=== PATIENT | female | born 1940 | race Caucasian/White ===

== ENCOUNTER 2025-03-07 14:55 | Emergency (ER) | payer OTHER ==
[2025-03-07 15:17] VITALS: BMI 38.7
[2025-03-07 16:04] LABS: MCHC 31.4 g/dl (32.2-35.5); MEAN CELL VOLUME 91.0 fl (79.4-94.8); MEAN PLT VOLUME 9.4 fl (9.4-12.3); RDW 18.5 % (12.5-17.0)
[2025-03-07 16:12] LABS: INR 1.05 (0.83-1.09); PROTHROMBIN TIME (PATIENT) 11.7 SEC (9.7-13.0)
[2025-03-07 16:15] LABS: ACTIVATED PTT 25.4 SECONDS (25.2-36.5)
[2025-03-07 16:22] LABS: ALK PHOS 66.0 U/L (45-117); CO2 29.0 mmol/L (21-32); CREATININE 1.3 mg/dl (0.6-1.3); GLUCOSE,RANDOM 136.0 mg/dl (74-106); SGOT/AST 12.0 U/L (15-37); SGPT/ALT 8.0 U/L (7-52); TOT PROT 5.5 g/dl (6.4-8.2)
[2025-03-07 18:43] LABS: HIV INTERPRETATION NEGATIVE (NEGATIVE)
[2025-03-07 18:44] LABS: HCV DIAGNOSTIC IN-HOUSE W/RFLX NON-REACTIVE (NONREACTIVE)
[2025-03-07 22:35] VITALS: BP 144/59; PULSE 88; RESP 18; TEMP 98.2
== END 2025-03-07 22:35 | disposition home or self-care (01) ==
LOC: FER 14:55
DX: D64.9 Anemia, unspecified (principal); R23.1 Pallor
CPT/HCPCS: 36415; 36430; 80053; 85025; 85610; 85730; 86803; 86850; 86900; 86901; 86922; 87389; 99285-25; P9058

== ENCOUNTER 2025-04-02 14:01 | Observation (INO) | payer OTHER ==
[2025-04-02 14:58] LABS: RDW 15.5 % (12.5-17.0)
[2025-04-02 15:02] LABS: MCHC 31.3 g/dl (32.2-35.5); MEAN CELL VOLUME 91.5 fl (79.4-94.8); MEAN PLT VOLUME 9.5 fl (9.4-12.3)
[2025-04-02 15:22] LABS: ALK PHOS 80.0 U/L (45-117); CO2 22.0 mmol/L (21-32); CREATININE 1.2 mg/dl (0.6-1.3); GLUCOSE,RANDOM 148.0 mg/dl (74-106); SGOT/AST 11.0 U/L (15-37); SGPT/ALT 7.0 U/L (7-52); TOT PROT 5.5 g/dl (6.4-8.2)
[2025-04-02 16:52] LABS: INR 1.01 (0.83-1.09); PROTHROMBIN TIME (PATIENT) 11.2 SEC (9.7-13.0)
[2025-04-02 19:13] VITALS: BMI 45.1
[2025-04-02 21:34] VITALS: RESP 17
[2025-04-02] MEDS: hydrALAZINE HCL 25 MG TABLET (FP) PO SCH (22:10)
[2025-04-03 06:33] VITALS: PULSE 82
[2025-04-03] MEDS: LEVOTHYROXINE NA 88 MCG TABLET (FP) PO SCH (06:43)
[2025-04-03 08:01] LABS: MCHC 32.7 g/dl (32.2-35.5); MEAN CELL VOLUME 88.9 fl (79.4-94.8); MEAN PLT VOLUME 9.4 fl (9.4-12.3); RDW 16.1 % (12.5-17.0)
[2025-04-03] MEDS: PANTOPRAZOLE 40 MG TABLET PO SCH (09:25)
[2025-04-03] MEDS: amLODIPine BESYLATE 10 MG TABLET (FP) PO SCH (09:25)
[2025-04-03 10:02] VITALS: BP 147/63; TEMP 98.1
== END 2025-04-03 09:45 ==
LOC: FER 14:01 → FM/S 17:03
PROVIDERS: ADMIT Internal Medicine; ATTEND Internal Medicine
DX: D64.9 Anemia, unspecified (principal); I12.9 Hypertensive chronic kidney disease with stage 1 through stage 4 chronic kidney disease, or unspecified chronic kidney disease; N18.9 Chronic kidney disease, unspecified; C54.1 Malignant neoplasm of endometrium; L03.119 Cellulitis of unspecified part of limb; I48.91 Unspecified atrial fibrillation; E78.5 Hyperlipidemia, unspecified; Z88.0 Allergy status to penicillin
CPT/HCPCS: 36415; 36430; 80053; 85025; 85027; 85610; 86850; 86900; 86901; 86922; 93005; 99285-25; G0378; P9058

== ENCOUNTER 2025-05-18 11:53 | Inpatient (IN) | payer OTHER ==
[2025-05-18 12:37] LABS: ABSOLUTE IMMATURE GRANULOCYTES 0.03 x10^3/uL (0.0-0.031); BASOPHILS # 0.03 x10^3/uL (0.01-0.08); EOSINOPHIL % 2.0 % (0.7-5.8); EOSINOPHILS # 0.14 x10^3/uL (0.04-0.36); MCHC 31.9 g/dl (32.2-35.5); MEAN CELL VOLUME 93.1 fl (79.4-94.8); MEAN PLT VOLUME 9.2 fl (9.4-12.3); MONOCYTE # 0.56 x10^3/uL (0.24-0.86); MONOCYTE % 8.0 % (4.7-12.5); RDW 15.1 % (12.5-17.0)
[2025-05-18 12:45] LABS: INR 1.08 (0.83-1.09); PROTHROMBIN TIME (PATIENT) 11.9 SEC (9.7-13.0)
[2025-05-18 12:48] LABS: ACTIVATED PTT 29.3 SECONDS (25.2-36.5)
[2025-05-18 13:23] LABS: GLUCOSE,RANDOM 117.0 mg/dL (74-106); TOT PROT 5.9 g/dl (6.4-8.2)
[2025-05-18 13:24] LABS: CO2 26.0 mmol/L (21-32)
[2025-05-18 13:26] LABS: ALK PHOS 85.0 U/L (40-150)
[2025-05-18 13:29] LABS: CREATININE 1.12 mg/dL (0.55-1.3); SGOT/AST 17.0 U/L (5-34); SGPT/ALT 7.0 U/L (0-55)
[2025-05-18 13:53] LABS: URINE COLOR YELLOW
[2025-05-18 13:56] LABS: URINE APPEARANCE CLEAR; URINE GLUCOSE (UA) NEGATIVE (NEGATIVE)
[2025-05-18 14:07] LABS: URINE BILIRUBIN NEGATIVE (NEGATIVE); URINE KETONE NEGATIVE (NEGATIVE); URINE NITRITE POSITIVE (NEGATIVE); URINE PROTEIN NEGATIVE (NEGATIVE); URINE UROBILINOGEN 0.2 mg/dL (0.2-1.0)
[2025-05-18 14:08] LABS: URINE LEUK ESTERASE 1+ (NEGATIVE)
[2025-05-18] MEDS ORDERED: CEFTRIAXONE 1 GM/50 ML BAG ONE (14:54)
[2025-05-18] MEDS: CEFTRIAXONE 1 GM in DEXTROSE 5%-WATER - 50 ML IVPB ONE (15:06)
[2025-05-18] MEDS ORDERED: ACETAMINOPHEN 325 MG TABLET (FP) ONE (16:15)
[2025-05-18] MEDS: ACETAMINOPHEN 325 MG TABLET (FP) PO ONE (16:29)
[2025-05-18] MEDS ORDERED: FUROSEMIDE 40 MG/4 ML INJECTABLE VIAL ONE (19:59)
[2025-05-18] MEDS: FUROSEMIDE 40 MG/4 ML INJECTABLE VIAL IVPUSH SCH (20:05)
[2025-05-18] MEDS: MELATONIN 5 MG TABLETS PO SCH (22:06)
[2025-05-18] MEDS: hydrALAZINE HCL 25 MG TABLET (FP) PO SCH (22:06)
[2025-05-18] MEDS: DOCUSATE SODIUM 100 MG CAPSULE (FP) PO SCH (22:07)
[2025-05-18] MEDS: PANTOPRAZOLE 40 MG TABLET PO SCH (22:09)
[2025-05-18] MEDS: LABETALOL HCL 100 MG TABLET (FP) PO SCH (22:11)
[2025-05-18 23:13] VITALS: BMI 40.1
[2025-05-19] MEDS: LEVOTHYROXINE NA 88 MCG TABLET (FP) PO SCH (06:38)
[2025-05-19 09:01] LABS: MCHC 31.5 g/dl (32.2-35.5); MEAN CELL VOLUME 92.0 fl (79.4-94.8); MEAN PLT VOLUME 9.5 fl (9.4-12.3); RDW 15.3 % (12.5-17.0)
[2025-05-19 09:32] LABS: GLUCOSE,RANDOM 146.0 mg/dL (74-106); TOT PROT 6.0 g/dl (6.4-8.2)
[2025-05-19 09:33] LABS: CO2 27.0 mmol/L (21-32)
[2025-05-19 09:35] LABS: ALK PHOS 87.0 U/L (40-150)
[2025-05-19 09:37] LABS: SGPT/ALT 10.0 U/L (0-55)
[2025-05-19 09:38] LABS: CREATININE 1.18 mg/dL (0.55-1.3); SGOT/AST 19.0 U/L (5-34)
[2025-05-19] MEDS: amLODIPine BESYLATE 10 MG TABLET (FP) PO SCH (09:38)
[2025-05-19] MEDS: LOSARTAN POTASSIUM 50 MG TABLET PO SCH (09:39)
[2025-05-19] MEDS ORDERED: CYANOCOBALAMIN 1,000 MCG TABLET (FP) PO SCH (10:00)
[2025-05-19] MEDS ORDERED: FUROSEMIDE 20 MG TABLET (FP) PO SCH (10:00)
[2025-05-19 11:25] VITALS: BP 135/51; PULSE 73; RESP 18; TEMP 97.1
== END 2025-05-19 12:00 | DRG 812 ==
LOC: JER 11:53 → JERBED 15:36 → OBSVTOIN 16:08 → J6W TELE 20:51
PROVIDERS: ADMIT Internal Medicine; ATTEND Internal Medicine
PROC: 30233N1 Transfusion of Nonautologous Red Blood Cells into Peripheral Vein, Percutaneous Approach (ICD-10-PCS; principal; 2025-05-18)
DX: D64.9 Anemia, unspecified (principal); K62.5 Hemorrhage of anus and rectum; E78.5 Hyperlipidemia, unspecified; I48.91 Unspecified atrial fibrillation; I12.9 Hypertensive chronic kidney disease with stage 1 through stage 4 chronic kidney disease, or unspecified chronic kidney disease; N18.9 Chronic kidney disease, unspecified; E03.9 Hypothyroidism, unspecified
CPT/HCPCS: 36415; 36430; 71045-TC-FY; 80053; 81003; 82272; 83605; 84484; 85025; 85027; 85610; 85730; 86850; 86900; 86901; 86922; 87086; 93005; 93010; 99285-25; G0378; P9058